=== PATIENT | female | born 1965 | race Caucasian/White ===

== ENCOUNTER 2025-09-08 11:22 | Emergency (ER) | payer MEDICAID ==
[~2025-09-08] VITALS: Ht 147.3 cm; Wt 74.0 kg
[2025-09-08 11:31] VITALS: O2SAT 99
[2025-09-08] MEDS ORDERED: IBUP-2030 MT (16:57)
[2025-09-08 17:15] VITALS: BP 162/81; PULSE 79; RESP 17; TEMP 36.7; O2SAT 99
== END 2025-09-08 17:41 | disposition home or self-care (01) ==
LOC: ER 11:22
DX: S92.341A Displaced fracture of fourth metatarsal bone, right foot, initial encounter for closed fracture (principal); M17.11 Unilateral primary osteoarthritis, right knee; X58.XXXA Exposure to other specified factors, initial encounter; Y93.89 Activity, other specified; Y92.89 Other specified places as the place of occurrence of the external cause; Y99.8 Other external cause status
CPT/HCPCS: 99284; 29515; 73700; 73560; 73610; 73630; A6449